=== PATIENT | male | born 1980 | race Caucasian/White ===

== ENCOUNTER 2019-07-20 12:56 | Emergency (ER) | payer OTHER ==
[~2019-07-20] VITALS: Ht 185.4 cm; Wt 79.4 kg
[2019-07-20] MEDS ORDERED: ONDANSETRON 4 MG/2 ML VIAL ONE ×2 (13:19→13:25)
[2019-07-20] MEDS: IV NORMAL SALINE 1000 ML BAG IV ONE ×2 (13:25→14:52)
[2019-07-20] MEDS: ONDANSETRON 4 MG/2 ML VIAL IV ONE (13:28)
[2019-07-20] MEDS ORDERED: HALOPERIDOL LACTATE 5 MG/1 ML VIAL ONE (13:34)
[2019-07-20] MEDS ORDERED: LORAZEPAM 2 MG/1 ML VIAL ONE (13:34)
[2019-07-20 13:36] LABS: BASOPHILS # (AUTO) 0.1 K/uL (0.0-8.0); BASOPHILS % (AUTO) 1.3 % (0.0-2.0); EOSINOPHILS # (AUTO) 0.1 K/uL (0.0-0.7); HEMATOCRIT 44.8 % (36.7-47.1); HEMOGLOBIN 15.1 g/dL (12.5-16.3); LYMPHOCYTES # (AUTO) 1.4 K/uL (20.0-40.0); LYMPHOCYTES % (AUTO) 18.5 % (20.5-51.5); MEAN CORPUSCULAR HEMOGLOBIN 31.6 uug (23.8-33.4); MEAN CORPUSCULAR HGB CONC 34 g/dL (32.5-36.3); MEAN CORPUSCULAR VOLUME 93.6 fL (73.0-96.2); MONOCYTES # (AUTO) 0.9 K/uL (2.0-10.0); MONOCYTES % (AUTO) 11.6 % (0.0-11.0); NEUTROPHILS # (AUTO) 5.1 K/uL (1.8-8.9); NEUTROPHILS % (AUTO) 66.6 % (38.5-71.5); PLATELET COUNT (AUTO) 203 K/uL (152-348); RED BLOOD CELL COUNT(AUTO) 4.79 MIL/uL (4.06-5.63); WHITE BLOOD COUNT (AUTO) 7.6 K/uL (3.6-10.2)
[2019-07-20] MEDS: LORAZEPAM 2 MG/1 ML VIAL IV ONE (13:37)
[2019-07-20] MEDS: HALOPERIDOL LACTATE 5 MG/1 ML VIAL IV ONE (13:41)
[2019-07-20 13:52] LABS: BILIRUBIN,DIRECT 0.1 mg/dL (0.0-0.2); BILIRUBIN,TOTAL 0.3 mg/dL (0.2-1.0); CREATININE 1.1 mg/dL (0.6-1.3); POTASSIUM 3.6 mmol/L (3.5-5.1); TOTAL PROTEIN, SERUM 7.9 g/dL (6.4-8.2)
--- NOTE | 2019-07-20 14:51 | NUR ---
Patient is resting comfortably in bed with eyes closed,NAD noted.
--- NOTE | 2019-07-20 16:30 | NUR ---
Pt is more awake and walked to bathroom w/ steady gait.
--- NOTE | 2019-07-20 16:44 | NUR ---
Placed a call to pt's ([email or web address]) regarding pt discharge. Pt will be picked up by .
[2019-07-20 16:55] VITALS: BP 129/66
--- NOTE | 2019-07-20 16:56 | NUR ---
Patient discharged to home in stable conditon. Written and verbal after care instructions given. Patient and pt's verbalize understanding of instructions. Pt left ER accompained by .
--- NOTE | 2019-07-20 16:56 | NUR ---
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
== END 2019-07-20 16:56 | disposition home or self-care (01) ==
LOC: ER 12:56
DX: F10.129 Alcohol abuse with intoxication, unspecified (principal); F32.9 Major depressive disorder, single episode, unspecified; Y90.8 Blood alcohol level of 240 mg/100 ml or more
CPT/HCPCS: 36415; 71045; 80048; 80076; 83690; 84484; 85025; 93005; 96361; 96374; 96375; 99284; G0480; J1630; J2060; J2405; 70030-TC; A4663; J7030